=== PATIENT | male | born 1965 | race Caucasian/White ===

== ENCOUNTER 2016-07-03 21:46 | Emergency (ER) | payer OTHER ==
[~2016-07-03] VITALS: Ht 180.3 cm; Wt 108.9 kg
[~2016-07-03 21:46] MED LIST: ADULT LOW DOSE81 MG PO; ATORVASTATIN CA10 M1 PO; CHLORTHALIDONE25 M1 PO; FLEXERIL10 MG PO; INDOMETHACIN50 M1 PO; LISINOPRIL10 M1 PO; MAGNESIUM500 M2 PO; METFORMIN HCL500 M3 PO; MOBIC 15MG15 MG PO; MULTI-DAY VITA1 EACH PO
--- NOTE | 2016-07-03 21:57 | ED PSYCHIATRIC COMPLAINT ---
History of Present Illness General Chief Complaint: ETOH/Drug Related Complaint Stated Complaint: BIBA ETOH DETOX Source: patient, EMS Exam Limitations: intoxication Vital Signs & Intake/Output Vital Signs & Intake/Output Vital Signs Date Time Temp Pulse Resp B/P Pulse O2 O2 Flow FiO2 Ox Delivery Rate 07/03 2224 95 Room Air 07/03 2218 96.5 90 16 144/87 95 Room Air ED Intake and Output 07/04 0000 07/03 1200 Intake Total Output Total Balance Patient 240 lb Weight (BELEN BAUMAN) Allergies Coded Allergies: onion (EYES WATER TREMENDOUSLY 11/18/15) Reconcile Medications Aspirin (Adult Low Dose Aspirin EC) 81 MG TABLET.DR 1 TAB PO DAILY SUPPLEMENT (Reported) Atorvastatin Calcium 10 MG TABLET 1 TAB PO DAILY CHOLESTEROL (Reported) Chlorthalidone 25 MG TABLET 1 TAB PO DAILY BP/DIURETIC (Reported) Indomethacin 50 MG CAPSULE 1 CAP PO PRN GOUT (Reported) with food Lisinopril 10 MG TABLET 1 TAB PO DAILY BP (Reported) Magnesium Oxide (Magnesium) (Unknown Strength) CAPSULE (Unknown Dose) PO DAILY SUPPLEMENT (Reported) Metformin HCl 500 MG TABLET 1 TAB PO BID DIABETES (Reported) Multivitamin (Multi-Day Vitamins) 1 EACH TABLET 1 TAB PO DAILY SUPPLEMENT ( Reported) Triage Nurses Notes Reviewed? yes Onset: Gradual Duration: week(s): Timing: recent history Severity: moderate Severity Numbers: 7 Associated Symptoms: INTOXICATION HPI: 51-year-old male presents to the emergency room brought in by ambulance after his roommate called the ambulance on him stating that he needs detox. On arrival patient is intoxicated and stating that he does not want to be here. Patient states that he was sober up until 2 months ago and has been drinking vodka every day since. The patient denies to myself ever g experiencing withdrawal seizures, DTs. He denies any other drug use. Patient denies any complaints at this time to myself (BELEN BAUMAN) Past History Travel History Traveled to [place] past 21 day No Medical History Any Pertinent Medical History? 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 No (BELEN BAUMAN) Review of Systems Review of Systems Constitutional: Reports: see HPI. All Other Systems: Reviewed and Negative Comments Review of systems: See HPI, All other systems negative. Constitutional, no chills no fever, no malaise no weight loss HEENT: No visual changes no sore throat no congestion, no ear pain Cardiovascular: No chest pain , no palpitation , no orthopnea no ankle swelling Skin, no jaundice no rashes, no change in skin Respiratory: No dyspnea no cough no sputum no hemoptysis GI: No nausea no vomiting, no diarrhea, no bloating/constipation : No dysuria No hematuria, no frequency, no discharge Muscle skeletal: No joint pain, no joint swelling, no back pain, no neck pain, Neurologic: No numbness no confusion, no headache Psych: No stress no anxiety no depression,. Heme/endocrine: No bruising no bleeding no polyuria no polydipsia Immunology: No lymphadenopathy, no splenectomy (BELEN BAUMAN) Physical Exam Physical Exam General Appearance: well developed/nourished, no apparent distress, awake Neurological/Psychiatric: no motor/sensory deficits, awake, oriented x 3, INTOXICATED Comments: Well-developed well-nourished person in no acute distress HEENT: Normal EENT exam; PERRL, EOMI, no nystagmus. HEAD is atraumatic. moist mucous membranes. Neck: Supple, no lymphadenopathy, normal range of motion without pain or tenderness Back: Nontender, no CVA tenderness. Full range of motion Cardiovascular: Regular rate and rhythms no murmurs rubs or gallops, normal JVP Respiratory: Chest nontender.There were no bony deformities, no asymmetry. No respiratory distress. Patient speaking in full complete sentences. Breath sounds clear to auscultation bilaterally: NO W/R/R Abdomen: Soft, nontender nondistended, no appreciable organomegaly. Normal bowel sounds. No rebound/guarding, No appreciable enlargement of the abdominal aorta, No ascites. Extremity: No edema, full range of motion of extremities, normal and equal pulses bilaterally, 5 out of 5 strength noted to bilateral upper and lower extremities Neuro: Alert oriented x3, motor sensory normal, cranial nerves II through XII grossly intact. There were no obvious focal neurologic abnormalities. Skin: No appreciable rash on exposed skin, skin is warm and dry. Psych: Mood and affect is normal, memory and judgment is normal. SAD PERSONS Done? patient not suicidal (BELEN BAUMAN) Progress Differential Diagnosis: drug intoxication, drug withdrawal, electrolyte abnormality, hypoglycemia, ELECTROLYTE ABNORMALITY Plan of Care: Orders Procedure Date/time Status CIWA 07/03 2153 Active URINE DRUG SCREEN FOR ER ONLY 07/03 2153 Complete ETHANOL 07/03 2153 Active COMPREHENSIVE METABOLIC PANEL 07/03 2153 Active CBC WITHOUT DIFFERENTIAL 07/03 2153 Complete Laboratory Tests 07/03/16 2221: CBC w Diff NO MAN DIFF REQ, RBC 5.09, MCV 90.8, MCH 30.5, RDW 13.9, MPV 8.4, Gran % 54.2, Lymphocytes % 33.8, Monocytes % 10.3 H, Eosinophils % 1.4, Basophils % 0.3, Absolute Granulocytes 5.2, Absolute Lymphocytes 3.3, Absolute Monocytes 1.0 H, Absolute Eosinophils 0.1, Absolute Basophils 0, PUBS MCHC 33.6 07/03/162208: Urine Opiates Screen < 100.00, Methadone Screen < 40, Barbiturate Screen < 60, Ur Phencyclidine Scrn < 6.00, Amphetamines Screen < 100, U Benzodiazepines Scrn < 85, Urine Cocaine Screen < 50, Urine Cannabis Screen < 5.00 Labs ordered old records reviewed. Patient intoxicated at this time in agreement and cooperative for blood work I discussed with him plan of care that if he wishes not to be here once sober he can leave Case discussed with and signed out to Dr. Velasco at 2300 pending patient's sobriety and labs (BELEN BAUMAN) Hand-Off Endorsed To: TIN VELASCO MD Endorsed Time: 2300 Pending: labs (sobriety), other (ciwa) (BELEN BAUMAN) Departure Departure Disposition: STILL A PATIENT Condition: Stable Clinical Impression Primary Impression: Alcohol dependence Referrals: SHERI LO APRN (PCP/Family) Referred to [facility] as new patient No Departure Forms: Customer Survey General Discharge Information (BELEN BAUMAN) Departure Additional Instructions: Avoid excessive drinking. Follow-up with your primary care doctor for reevaluation this week. Return if any concerns or sudden worsening. PA/TREE KILLER Co-Sign Statement Statement: ED Attending supervision documentation- [] I saw and evaluated the patient. I have also reviewed all the pertinent lab results and diagnostic results. I agree with the findings and the plan of care as documented in the PA's/TREE KILLER's documentation. [x] I have reviewed the ED Record and agree with the PA's/TREE KILLER's documentation. [] Additions or exceptions (if any) to the PAs/TREE KILLER's note and plan are summarized below: [] (EDGAR SANTANA,TIN Mcghee)
[2016-07-03 22:31] LABS: ABSOLUTE BASOPHIL COUNT 0 /CUMM (0.0-0.2); ABSOLUTE EOSINOPHIL COUNT 0.1 /CUMM (0.0-0.7); ABSOLUTE GRANULOCYTE CT 5.2 /CUMM (1.4-6.5); ABSOLUTE LYMPH COUNT 3.3 /CUMM (1.2-3.4); BASOPHIL % 0.3 % (0.0-2.0); EOSINOPHIL % 1.4 % (0-5); GRANULOCYTE % 54.2 % (42.2-75.2); HEMATOCRIT 46.2 % (42-52); MEAN CORPUSCULAR HGB 30.5 PG (27.0-31.0); MEAN CORPUSCULAR HGB CONC 33.6 G/DL (33.0-37.0); MEAN CORPUSCULAR VOLUME 90.8 FL (80.0-94.0); MEAN PLATELET VOLUME 8.4 FL (7.4-10.4); PLATELET COUNT 189 /CUMM (130-400); RBC DISTRIBUTION WIDTH 13.9 % (11.5-14.5); RED BLOOD CELL CT 5.09 /CUMM (4.70-6.10); WHITE BLOOD CELL COUNT 9.6 /CUMM (4.8-10.8)
[2016-07-04 06:21] VITALS: BP 114/57
== END 2016-07-04 06:38 ==
LOC: ERH 21:46
PROVIDERS: Physician Assistant Medical
DX: F10.20 Alcohol dependence, uncomplicated (principal)
CPT/HCPCS: 80307; G0480

== ENCOUNTER 2016-10-19 15:53 | Emergency (ER) | payer OTHER ==
[~2016-10-19] VITALS: Ht 180.3 cm; Wt 106.6 kg
[2016-10-19 15:59] VITALS: BP 143/87
--- NOTE | 2016-10-19 17:12 | RADIOLOGY REPORT ---
EXAMINATION: XR KNEE, RIGHT CLINICAL INFORMATION: Pain and swelling COMPARISON: None TECHNIQUE: 5 views of the right knee. FINDINGS: Possible small effusion. Some mild degeneration at the patellofemoral articulation and mild spurring at the insertion of the quadriceps. Mild medial joint space loss. No acute fracture or dislocation. IMPRESSION: Some early degenerative changes as described and possible small effusion. No acute finding
--- NOTE | 2016-10-19 18:23 | ED UPPER/LOWER EXTREMITY COMPL ---
History of Present Illness General Chief Complaint: Lower Extremity Injury Stated Complaint: R KNEE PAIN Source: patient, old records Exam Limitations: no limitations Vital Signs & Intake/Output Vital Signs & Intake/Output Vital Signs Date Time Temp Pulse Resp B/P B/P Pulse O2 O2 Flow FiO2 Mean Ox Delivery Rate 10/19 1559 96.0 69 18 143/87 98 Room Air Allergies Coded Allergies: onion (EYES WATER TREMENDOUSLY 11/18/15) Reconcile Medications Aspirin (Adult Low Dose Aspirin EC) 81 MG TABLET.DR 1 TAB PO DAILY SUPPLEMENT (Reported) Atorvastatin Calcium 10 MG TABLET 1 TAB PO DAILY CHOLESTEROL (Reported) Chlorthalidone 25 MG TABLET 1 TAB PO DAILY BP/DIURETIC (Reported) Indomethacin 50 MG CAPSULE 1 CAP PO PRN GOUT (Reported) with food Lisinopril 10 MG TABLET 1 TAB PO DAILY BP (Reported) Magnesium Oxide (Magnesium) (Unknown Strength) CAPSULE (Unknown Dose) PO DAILY SUPPLEMENT (Reported) Metformin HCl 500 MG TABLET 1 TAB PO BID DIABETES (Reported) Multivitamin (Multi-Day Vitamins) 1 EACH TABLET 1 TAB PO DAILY SUPPLEMENT ( Reported) Triage Note: PT TO TRIAGE WITH C/O R KNEE PAIN 7/10 AND SWELLING x2DAYS. PT DENIES ANY INJURY. VSS. HC OF GOUT. Triage Nurses Notes Reviewed? yes Onset: Abrupt Duration: week(s): (1), constant, getting worse (X2 DAYS) Timing: recent history Severity: mild, moderate Severity Numbers: 5 Pain/Injury Location: Right: Knee. Method of Injury: unknown No Modifying Factors: none Associated Symptoms: swelling HPI: 51-year-old male with history of hypertension, gout presents emergency room complaining of a several week history of progressively worsening constant right knee pain aching in nature with intermittent swelling 7 out of 10 for she's been taking indomethacin with improvement. He states pain got worse 2 days ago when he walked a mile and a half. He denies any known injury trauma or fall. He denies any other foot ankle or hip pain no numbness or tingling. He denies any redness warmth or rashes to his skin. He denies any other joint pain no chest pain shortness of breath fever or chills (TATY SANTOS,BELEN) Past History Travel History Traveled to [place] past 21 day No Medical History Any Pertinent Medical History? see below for history Neurological: NONE EENT: NONE Cardiovascular: hypertension, hyperlipidemia Respiratory: NONE Gastrointestinal: NONE Hepatic: NONE Renal: NONE Musculoskeletal: chronic back pain, disk herniation, gout, sciatica Psychiatric: NONE Endocrine: diabetes Blood Disorders: NONE Cancer(s): NONE STATIONARY BOILER FIREMAN/Reproductive: NONE Surgical History Surgical History: BACK SURGERY Psychosocial History What is your primary language Wolof Tobacco Use: Never used Family History Hx Contributory? No (BELEN BAUMAN) Review of Systems Review of Systems Constitutional: Reports: see HPI. All Other Systems: Reviewed and Negative Comments Review of systems: See HPI, All other systems negative. Constitutional, no chills no fever, no malaise HEENT: No visual changes no sore throat no congestion Cardiovascular: No chest pain , no palpitation Skin: no rashes, no change in skin Respiratory: No dyspnea no cough no sputum GI: No nausea no vomiting, no diarrhea : No dysuria Muscle skeletal: joint pain, no joint swelling, no back pain, no neck pain, Neurologic: No numbness, no headache Psych: No stress Heme/endocrine: No bruising no bleeding Immunology: No lymphadenopathy (BELEN BAUMAN) Physical Exam Physical Exam General Appearance: well developed/nourished, alert, awake Comments: Well-developed well-nourished patient in no apparent distress. HEENT: Atraumatic, extraocular motion intact Neck: Supple, FROM Back: FROM Cardiovascular: Regular rate and rhythms no murmurs rubs Respiratory: No respiratory distress. Patient speaking in full complete sentences. Breath sounds clear to auscultation bilaterally: NO W/R/R Upper Extremities: full range of motion Hip/Pelvis: Atraumatic/Stable. FROM. No pain with pelvic compression Knee: Atraumatic/stable. FROM. No joint swelling, no effusion. No laxity. Negative gab/anterior drawer test. No pain with ROM no erythema and no ecchymosis Leg: Atraumatic. Nontender. No edema, 5 out of 5 strength in the lower extremity, normal dorsiflexion of great toe bilaterally, gross sensation is intact Ankle/Foot: Atraumatic/stable. Skin intact. FROM. No swelling, no effusion. No laxity on exam Pulses: Normal/equal DP/PT pulses bilaterally. Brisk cap refill Neuro: awake, alert, and oriented to person, place and time. There were no obvious focal neurologic abnormalities. Skin: Warm & dry;No appreciable rash on exposed skin Psych: Mood affect normal, normal memory normal judgment. (BELEN BAUMAN) Progress Differential Diagnosis: compartment syndrome, contusion, dislocation, DVT, fracture, gout, sprain, tendon injury Plan of Care: X-ray was ordered from triage I discussed with the patient at length all of their results. I had an extensive conversation regarding need for close follow up with their primary care physician this week as well as return precautions. I answered all of their questions, they feel comfortable with the plan and follow-up care. I discussed the medications that they will receive with the patient. I gave them signs and symptoms that could indicate an adverse reaction. I have advised them to limit their activities until they can see how they respond to the medication. Diagnostic Imaging: Viewed by Me: Radiology Read. Discussed w/RAD: Radiology Read. Radiology Impression: PATIENT: STEPHANIE BECERRIL PRESENT AGE: 51 PATIENT ACCOUNT NO: [id number] : 66 LOCATION: [facility] ORDERING PHYSICIAN: BELEN SANTOS SERVICE DATE: 10/19/16 EXAM TYPE: RAD - XRY-KNEE COMPLETE RIGHT EXAMINATION: XR KNEE, RIGHT CLINICAL INFORMATION: Pain and swelling COMPARISON: None TECHNIQUE: 5 views of the right knee. FINDINGS: Possible small effusion. Some mild degeneration at the patellofemoral articulation and mild spurring at the insertion of the quadriceps. Mild medial joint space loss. No acute fracture or dislocation. IMPRESSION: Some early degenerative changes as described and possible small effusion. No acute finding DICTATED BY: TIN MIN MD DATE/TIME DICTATED:10/19/161707 SUPERVISOR DIALS:TYRONE DATE/TIME TRANSCRIBED:10/19/161707 CONFIDENTIAL, DO NOT COPY WITHOUT APPROPRIATE AUTHORIZATION. <Electronically signed in Other Vendor System> SIGNED BY: TIN MIN MD 10/19/161711 (BELEN BAUMAN) Departure Departure Time of Disposition: 1827 Disposition: HOME OR SELF CARE Condition: Stable Clinical Impression Primary Impression: Knee strain Referrals: SHERI LO APRN (PCP/Family) Additional Instructions: Rest ice Tylenol or Motrin as needed. Follow-up with your orthopedist as discussed return anytime sooner with any concerns. Departure Forms: Customer Survey General Discharge Information (BELEN BAUMAN) PA/EMERGENCY MEDICINE PHYSICIAN Co-Sign Statement Statement: ED Attending supervision documentation- [] I saw and evaluated the patient. I have also reviewed all the pertinent lab results and diagnostic results. I agree with the findings and the plan of care as documented in the PA's/EMERGENCY MEDICINE PHYSICIAN's documentation. [X] I have reviewed the ED Record and agree with the PA's/EMERGENCY MEDICINE PHYSICIAN's documentation. [] Additions or exceptions (if any) to the PAs/EMERGENCY MEDICINE PHYSICIAN's note and plan are summarized below: [] (SETH SANTANA,TOMASA)
== END 2016-10-19 18:34 ==
LOC: ERH 15:53
DX: S86.991A Other injury of unspecified muscle(s) and tendon(s) at lower leg level, right leg, initial encounter (principal); X58.XXXA Exposure to other specified factors, initial encounter; Y92.9 Unspecified place or not applicable; Y93.9 Activity, unspecified
CPT/HCPCS: 73562-RT